=== PATIENT | female | born 1960 | race Caucasian/White ===

== ENCOUNTER 2017-09-21 11:40 | Inpatient (IN) | payer MEDICAID, OTHER ==
[~2017-09-21] VITALS: Ht 162.6 cm; Wt 64.0 kg
[~2017-09-21 11:40] MED LIST: APAP325T4 PO; BUPR150T3 PO; LEVO137T2 PO; MAPA325T2 PO; METF-699 PO; NICO7DIS2 TD; NICO7PA EXT; OMEP20CA3 PO; PRIL20CA9 PO; SERT50TA PO; SYNT137T7 PO; TRAZO50TA PO; XANA1TAB2 PO; ZOLO50TA PO
[2017-09-21] MEDS ORDERED: AUGM875T28 PO (11:56)
[2017-09-21] MEDS ORDERED: VITA200038 PO (11:56)
[2017-09-21] MEDS ORDERED: WELLTAB40 PO (11:56)
[2017-09-21] MEDS ORDERED: XANA1TAB2 PO (11:56)
[2017-09-21 12:43] LABS: MEAN CORPUSCULAR HEMOGLOBIN 29.1 pg (27.0-33.0); MEAN CORPUSCULAR HGB CONC 33.9 g/dl (32.0-36.5); MEAN CORPUSCULAR VOLUME 85.7 fl (80.0-96.0); PLATELET COUNT, AUTOMATED 273 10^3/uL (150-450); RED CELL DISTRIBUTION WIDTH 13.3 % (11.5-14.5); WHITE BLOOD COUNT 6.3 10^3/uL (4.0-10.0)
[2017-09-21 13:07] LABS: ALBUMIN 4.2 GM/DL (3.2-5.2); ALKALINE PHOSPHATASE 103 U/L (45-117); ALT/SGPT 28 U/L (12-78); ANION GAP 8 MEQ/L (8-16); AST/SGOT 10 U/L (7-37); BILIRUBIN,DIRECT < 0.1 MG/DL (0.0-0.2); BILIRUBIN,TOTAL 0.3 MG/DL (0.2-1.0); BLOOD UREA NITROGEN 16 MG/DL (7-18); CALCIUM LEVEL 9.9 MG/DL (8.5-10.1); CARBON DIOXIDE LEVEL 27 MEQ/L (21-32); CHLORIDE LEVEL 107 MEQ/L (98-107); CREATININE FOR GFR 0.76 MG/DL (0.55-1.02); GLOMERULAR FILTRATION RATE > 60.0 (>51); GLUCOSE, FASTING 108 MG/DL (70-105); POTASSIUM SERUM 4.1 MEQ/L (3.5-5.1); SODIUM LEVEL 142 MEQ/L (136-145); TOTAL PROTEIN 7.2 GM/DL (6.4-8.2)
[2017-09-21 13:08] LABS: METHADONE URINE NEGATIVE (NEGATIVE)
[2017-09-21 17:05] VITALS: BP 125/77
[2017-09-21] MEDS ORDERED: OLANZapine ORAL DISINTEGRATING TAB 5MG PO PRN (19:45)
[2017-09-21] MEDS ORDERED: ACETAMINOPHEN TAB 650MG DOSE (2X325MG) PO PRN (19:45)
[2017-09-21] MEDS ORDERED: MAALOX 30 ML SUSP *UDC PO PRN (19:45)
[2017-09-21] MEDS ORDERED: MOM 30ML SUSPENSION UDC PO PRN (19:45)
[2017-09-21] MEDS: AUGMENTIN 875 MG TAB PO SCH (21:22)
[2017-09-21] MEDS: ALPRAZolam 0.5 MG TAB PO SCH (21:26)
[2017-09-22 06:25] VITALS: BP 130/68
[2017-09-22] MEDS: LEVOTHYROXINE 137MCG TABLET (0.137MG) PO SCH (06:49)
[2017-09-22] MEDS: OMEPRAZOLE 20 MG CAP PO SCH (08:43)
[2017-09-22] MEDS: ALPRAZolam 0.5 MG TAB PO SCH (08:43)
[2017-09-22] MEDS: AUGMENTIN 875 MG TAB PO SCH ×2 (08:44→20:31)
[2017-09-22] MEDS: MULTIVITAMINS/MINERALS THERAP 1 TAB PO SCH (08:44)
[2017-09-22] MEDS ORDERED: SERTRALINE HCL 50 MG TAB PO SCH (09:00)
[2017-09-22] MEDS: chlordiazePOXIDE 25 MG CAP PO SCH ×2 (09:00→20:55)
[2017-09-22] MEDS ORDERED: buPROPion **XL** TABLET 150MG (WELLBUTRIN XL) PO SCH (09:00)
[2017-09-22] MEDS ORDERED: NICOTINE 14 MG/24 HR TRANSDERMAL TD SCH (09:00)
[2017-09-22] MEDS ORDERED: traZODone 50 MG TAB PO PRN (09:30)
--- NOTE | 2017-09-22 16:09 | MHHPE ---
DATE OF ADMISSION: 09/22/2017 LEGAL STATUS ON ADMISSION: 9.39 legal status. CHIEF COMPLAINT: "I have been feeling depressed." HISTORY OF PRESENT ILLNESS: 57-year-old female with history of depression and polysubstance abuse admitted to our unit on a 9.39 legal status. According to the record, patient was referred by her case supervisor, Lorna, and was picked up by [place] [employer] to be evaluated to our emergency department. According to Lorna she made a visit to the patient's home, and she was depressed, crying, and stated that she had thought about taking an overdose. Patient stated that she did not want to feel like this any longer. Said she had not left the apartment in a week and has hardly sat up. Also reported by Lorna she had several notes saying good bye. Per patient, this note was addressed to her dog and was not a suicide note. Patient admitted feeling depressed, anxious, said that she started taking her Zoloft again after stopping it for several months a week and a half ago. Patient does not have current outpatient appointments. Her primary care provider prescribed her medications. Apparently she is supposed to be taking Xanax, Zoloft and Wellbutrin. During the interview today, patient is minimizing all the events that lead to the admission and is trying to convince me that this has been taking out of context. She admits some depressive symptoms, but she is again minimizing, and at this point, she is not reliable. Patient reports that she has been depressed approximately one month, feels that she has been more quiet, isolated, more tired with less appetite, lower self esteem. Patient admits to feeling worried, anxious, have ruminations and it is difficult to make decisions. Again she denies suicidal thoughts but is not reliable. There is no evidence of psychotic symptoms. Review of the chart during her last admission approximately one year ago, her UDS was positive for cocaine, marijuana, and alcohol. When she got to the emergency department she was very agitated and had to be medicated and restrained. This time, patient is much better and is cooperative although minimizing. 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 PAST PSYCHIATRIC HISTORY: As above, patient has been diagnosed with depression, polysubstance abuse and was admitted to our unit about a year ago. FAMILY HISTORY: Patient reports her father was an alcoholic. SUBSTANCE ABUSE HISTORY: Patient denies having any problems with drugs or alcohol, however she was admitted last year with a positive urine drug screen of cocaine, marijuana and blood alcohol level. SOCIAL HISTORY: Patient says that she lives alone, has very poor support, has only "acquaintances". 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 Denies any abuse or neglect during childhood. PSYCHIATRIC REVIEW OF SYSTEMS: Bipolar/effie: No evidence of grandiosity flight of ideas or pressured speech. Anxiety disorder: Patient reports anxiety but denies panic, agoraphobia, obsessive Compulsive Disorder (OCD), washing hand repeatedly, checking things over and over. Somatization disorder: Screening from pain, conversion, GI or sexual symptoms are negative. Eating disorder: Screening for diet, use of laxities, eating in binges is negative. Cognitive disorder. Patient reports poor attention and concentration but is not consistent with cognitive disorder. Psychotic disorder: There is no evidence of delusions, paranoia, grandiosity or congregation preoccupation. No hallucinations or looseness of associations. PHYSICAL EXAMINATION: Is as per physician physical laboratory assistant. LABS AT ADMISSION: Her CBC was unremarkable except RBC of 547, CMP is unremarkable. TSH was 0.31. Urine drug screen was positive for benzodiazepine. Blood alcohol level is negative. MENTAL STATUS EXAMINATION: Patient is dressed in [facility]. Patient is cooperative but minimizing. Speech is somewhat pressured. Has fair eye contact. Mood is anxious and depressed. Affect is labile. Patient is oriented to time, place, person and situation. Maintains attention and concentration fairly. Instant recall, recent and remote memory are fair. Thought process are coherent and logical and goal-directed. Patient does not have auditory or visual hallucination. The patient does not have paranoid persecutory, somatic, grandiose or congregation delusion. The patient denies suicidal ideation, but again she left a suicide note and she is not reliable. No homicidal ideation. Judgment and insight are poor. DIAGNOSES: AXIS I: Unspecified depressive disorder. Rule out major depressive disorder verus substance induced mood disorder versus adjustment disorder with depressed mood. Rule out polysubstance use versus dependency. AXIS II: Deferred. AXIS III: History of Jose's thyroiditis and gastroesophageal reflux disease. INITIAL TREATMENT PLAN: Patient was admitted on a 9.39 legal status. Complete history was obtained. With her permission, family will be contacted and the database will be expanded. Her medication regimen will be [id number] and changed accordingly. She will be provided with protected environment. She will be treated with individual, group and milieu therapy. She will also receive supportive psychoeducation. Discharge planning will commence immediately. Length of stay will be between 5 and 7 days. Patient follow up will be strongly recommended. The treatment plan will focus initially on depression, risk for suicide, substance abuse.
[2017-09-22 18:09] VITALS: BP 135/72
[2017-09-22] MEDS: SERTRALINE HCL 50 MG TAB PO SCH (20:31)
[2017-09-23] MEDS: LEVOTHYROXINE 137MCG TABLET (0.137MG) PO SCH (06:08)
[2017-09-23 06:38] VITALS: BP 116/58
[2017-09-23] MEDS: OMEPRAZOLE 20 MG CAP PO SCH (08:16)
[2017-09-23] MEDS: chlordiazePOXIDE 25 MG CAP PO SCH (08:16)
[2017-09-23] MEDS: AUGMENTIN 875 MG TAB PO SCH ×2 (08:16→21:01)
[2017-09-23] MEDS: MULTIVITAMINS/MINERALS THERAP 1 TAB PO SCH (08:16)
[2017-09-23 20:21] VITALS: BP 147/81
[2017-09-23] MEDS: SERTRALINE HCL 50 MG TAB PO SCH (21:01)
[2017-09-24] MEDS: chlordiazePOXIDE 25 MG CAP PO SCH ×3 (00:04→21:23)
[2017-09-24] MEDS: LEVOTHYROXINE 137MCG TABLET (0.137MG) PO SCH (06:10)
[2017-09-24 06:39] VITALS: BP 121/79
[2017-09-24] MEDS: AUGMENTIN 875 MG TAB PO SCH ×2 (08:24→21:23)
[2017-09-24] MEDS: MULTIVITAMINS/MINERALS THERAP 1 TAB PO SCH (08:24)
[2017-09-24] MEDS: OMEPRAZOLE 20 MG CAP PO SCH (08:24)
--- NOTE | 2017-09-24 11:25 | IPN ---
DATE OF SERVICE: 09/23/2017 HISTORY: 57-year-old female with history of depression and polysubstance abuse admitted to our unit for suicidal ideation. The patient left a suicide note that was very concerning. MEDICATIONS: - Zoloft 50 mg by mouth at bedtime - trazodone 50 mg by mouth at bedtime as needed for insomnia - Librium 25 mg by mouth twice a day SUBJECTIVE: "I need to go home." OBJECTIVE: No major changes from yesterday. Patient continues minimizing the events that led to her admission. She is denying suicidal thoughts and is asking me to go home. Patient continues depressed with sad, restricted facial expression, psychomotor retardation. Patient has very little insight and is not reliable. There is no evidence of psychotic symptoms. Patient reports mild symptoms of tremors and tension from the discontinuation of Klonopin. She is taking now a tapering dose of Librium. MENTAL STATUS EXAMINATION: Patient dressed in [facility]. Patient is cooperative, has fair eye contact. Speech is low and monotone. Mood is depressed and anxious. Affect is restricted. No evidence of delusions or hallucinations. Memory, attention and concentration are fair. The patient denies suicidal ideation, but she is not reliable, is minimizing all the symptoms. Insight and judgment is poor. ASSESSMENT: 1. Depression. 2. Suicidal ideation. PLAN: 1. Continue sertraline 50 mg by mouth at bedtime. 2. Continue trazodone 50 mg by mouth at bedtime as needed for insomnia. 3. Increase Librium to 25 mg by mouth three times a day.
--- NOTE | 2017-09-24 12:55 | MHHPE ---
DATE OF ADMISSION: 09/21/2017 Please refer to psychiatric history and evaluation for further details on this admission. This examination and history is intended for medical issues which may need treatment, followup or consult on this 57-year-old female. ALLERGIES: No known allergies. SOCIAL HISTORY: She is single. She lives in [place]. She smokes one half pack of cigarettes per day. EtOH currently none. Recreational drug use none. PAST MEDICAL HISTORY: Anxiety. Hypothyroidism. Gastroesophageal reflux disease (GERD). PAST SURGICAL HISTORY: Tonsillectomy. LABORATORY STUDIES: WBC 6.3, hemoglobin 15.9, hematocrit 46.9, platelets 273. Electrolytes were normal. TSH was normal at 0.318. Toxicology screen urine was positive for benzodiazepines. HOME MEDICATIONS: - Xanax 1 mg by mouth twice daily - Augmentin 875 one by mouth twice daily for a recent upper respiratory infection. She states she has taken only 3 or 4 days of it and then she came in here. - Wellbutrin XL 300 mg by mouth daily - Vitamin D 50,000 units by mouth weekly - levothyroxine 0.137 mcg by mouth daily - omeprazole 20 mg by mouth daily - Sertraline 50 mg by mouth daily Ten systems review was done. Patient was feeling well. Had no complaints. EKG on file, sinus rhythm, nonspecific ST-T wave abnormalities. PHYSICAL EXAMINATION: 57-year-old cooperative female in no acute distress. Height 64 inches, weight 60.5 kg. BMI 29.2. Blood pressure 130/68, pulse 90, respirations 16, temperature 98.7. The patient is alert and oriented times three. Pupils equal and reactive to light. Extraocular movements intact. Cornea and sclera clear. Conjunctiva normal. No facial asymmetry. Pharynx slightly reddened. Tongue and gums pink and moist. Tongue is midline. Neck is supple, without lymphadenopathy. No thyromegaly. No goiter. Has coarse breath sounds. Few scattered rhonchi. No wheeze or retraction. Heart is regular. Abdomen benign. Bowel sounds positive. Genitourinary ()/Rectal: Not done. Extremities show equal strength, full range of motion. No cyanosis, clubbing or edema. Peripheral pulses equal and palpable bilaterally. Skin is warm and dry. IMPRESSION AND PLAN: 1. Psychiatric plan per psychiatry. 2. Upper respiratory infection (URI). Continue Augmentin 875 one by mouth twice daily. Take with food times 7 days. She has had approximately 3 days already before admission. 3. Gastroesophageal reflux disease (GERD) stable. 4. Hypothyroidism. TSH therapeutic on current dose of levothyroxine. 5. Continue omeprazole for GERD. 6. No other acute medical issues.
[2017-09-24 18:00] VITALS: BP 140/85
[2017-09-24] MEDS: SERTRALINE HCL 50 MG TAB PO SCH (21:23)
--- NOTE | 2017-09-25 02:58 | MHIPN ---
DATE OF SERVICE: 09/24/2017 HISTORY: 57-year-old female with history of depression and polysubstance abuse admitted to our unit for suicidal ideation. The patient left a suicide note that was brought by her health and social care teacher. MEDICATIONS: - Zoloft 50 mg by mouth nightly - trazodone 50 mg by mouth nightly as needed for insomnia - Librium 25 mg by mouth three times a day SUBJECTIVE: "I need to be discharged." OBJECTIVE: Patient continues labile, although she is interacting better with other patients and staff. Psychomotor retardation has improved. Patient continues crying during part of the interview. She is asking to be discharged. Denies symptoms of withdrawal and slept better last night. MENTAL STATUS EXAMINATION: Patient dressed in [facility]. Patient is cooperative, has fair eye contact. Speech is normal in rate, volume and articulation, is coherent and is spontaneous. Mood is depressed and anxious, but somewhat improved. Affect is labile. No evidence of delusions or hallucinations. Attention and concentration are fair. Patient is denying suicidal ideation during the interview, but at this point is considered non-reliable since she is minimizing all the symptoms in order to be discharged. Insight and judgment is limited. ASSESSMENT: 1. Depression. 2. Suicidal ideation. PLAN: 1. Continue sertraline 50 mg by mouth nightly. 2. Continue trazodone 50 as needed for insomnia. 3. Decrease Librium to 25 mg by mouth twice a day.
[2017-09-25] MEDS: LEVOTHYROXINE 137MCG TABLET (0.137MG) PO SCH (06:02)
[2017-09-25 06:27] VITALS: BP 110/63
[2017-09-25] MEDS: MULTIVITAMINS/MINERALS THERAP 1 TAB PO SCH (08:07)
[2017-09-25] MEDS: OMEPRAZOLE 20 MG CAP PO SCH (08:07)
[2017-09-25] MEDS: chlordiazePOXIDE 25 MG CAP PO SCH ×2 (08:07→21:21)
[2017-09-25] MEDS: AUGMENTIN 875 MG TAB PO SCH ×2 (08:08→21:21)
[2017-09-25] MEDS ORDERED: VITAMIN D 50,000 UNITS CAPSULE (ERGOCALCIFEROL 1.25MG) PO SCH (09:00)
--- NOTE | 2017-09-25 17:39 | MHIPN ---
DATE: 09/25/2017 HISTORY: 57-year-old female with history of depression and polysubstance abuse, admitted to our unit for suicidal ideation. Patient left a suicidal note that was brought by her foster care social worker. MEDICATIONS: - Zoloft 50 mg by mouth nightly - trazodone 50 mg by mouth nightly as needed for insomnia - Librium 25 mg by mouth three times a day SUBJECTIVE: "I'm feeling much better." OBJECTIVE: Patient is improving slowly. Patient is interacting better with other patients and staff. No psychomotor retardation. Patient is denying side effects from the medication. Patient is denying auditory or visual hallucinations or delusions. MENTAL STATUS EXAMINATION: Patient is dressed in [facility]. Patient is cooperative, has fair eye contact. Her speech is normal in rate, volume, and articulation. Patient is depressed, but is improving. Affect is congruent with mood. No evidence of delusions or hallucinations. Memory, attention, and concentration are fair. Patient is able to contract for safety during the interview. Insight and judgment is improving. ASSESSMENT: 1. Depression. 2. Suicidal ideation. 3. Polysubstance dependency by history. PLAN: 1. Continue sertraline 50 mg by mouth nightly. 2. Continue trazodone 50 mg by mouth nightly. 3. Continue Librium 25 mg twice a day.
[2017-09-25 18:00] VITALS: BP 110/66
[2017-09-25] MEDS: SERTRALINE HCL 50 MG TAB PO SCH (21:21)
[2017-09-26] MEDS: LEVOTHYROXINE 137MCG TABLET (0.137MG) PO SCH (05:36)
[2017-09-26 06:34] VITALS: BP 96/61
[2017-09-26] MEDS: chlordiazePOXIDE 25 MG CAP PO SCH (08:12)
[2017-09-26] MEDS: OMEPRAZOLE 20 MG CAP PO SCH (08:12)
[2017-09-26] MEDS: MULTIVITAMINS/MINERALS THERAP 1 TAB PO SCH (08:12)
[2017-09-26] MEDS: AUGMENTIN 875 MG TAB PO SCH ×2 (08:12→20:13)
[2017-09-26 18:00] VITALS: BP 121/61
[2017-09-26] MEDS: SERTRALINE HCL 50 MG TAB PO SCH (20:13)
[2017-09-26] MEDS ORDERED: chlordiazePOXIDE 25 MG CAP PO SCH (21:00)
[2017-09-27] MEDS: LEVOTHYROXINE 137MCG TABLET (0.137MG) PO SCH (06:14)
[2017-09-27 06:49] VITALS: BP 112/59
[2017-09-27] MEDS: MULTIVITAMINS/MINERALS THERAP 1 TAB PO SCH (08:22)
[2017-09-27] MEDS: OMEPRAZOLE 20 MG CAP PO SCH (08:22)
[2017-09-27] MEDS: AUGMENTIN 875 MG TAB PO SCH (08:22)
[2017-09-27] MEDS ORDERED: CHLO25CA PO (09:19)
--- NOTE | 2017-09-27 15:11 | MHDS ---
DATE OF ADMISSION: 09/21/2017 DATE OF DISCHARGE: 09/27/2017 LEGAL STATUS AT ADMISSION: 9.39 legal status. HISTORY OF PRESENT ILLNESS: A 57-year-old female with history of depression and polysubstance abuse admitted to our unit on a 9.39 legal status. According to the record, the patient was referred by her postal support employee, Lorna. She was picked up by [place] [employer] to be evaluated at the emergency department (ED). According to Lorna, she made a visit to the patient's home and she was depressed, crying, stating that she was thinking about taking an overdose. The patient stated that she did not want to feel like this any longer. She had not left the apartment in a week and has hardly sat up. She also reported that she left several notes saying goodbye. Per patient, this note was addressed to her dog and was not a suicide note. The patient admitted feeling depressed, anxious. She reports that she restarted taking her Zoloft again after stopping it for several months. She does not have current outpatient appointments. Her primary care provider is prescribing the medications. Apparently, she is taking Xanax, Zoloft, and Wellbutrin. During the interview in our unit, the patient was minimizing all the events that led to her admission and was trying to convince me that all has been taken out of context. She admitted feeling depressed but descriptions of the symptoms were not reliable and definitely minimizing them. She admitted that she was feeling depressed for a month, that she has been more quiet and isolated, more tired, having less appetite, lower self-esteem. The patient also admitted feeling worried, anxious, and having ruminations, also that it was very difficult to make decisions. Again, she denied suicidal thoughts and was not reliable. There is no evidence of psychotic symptoms. No auditory or visual hallucinations or delusions. Reviewing the chart, during her last admission, approximately one year ago, her urine drug screen was positive for cocaine, marijuana and alcohol. She was very agitated when arrived to the emergency department at that time. She had to be medicated and restrained. This time, the patient's presentation is significantly better and more cooperative. LABORATORY DATA AT ADMISSION: Her CBC was unremarkable. CMP within normal limits except TSH of 0.31. Urine drug screen was positive for benzodiazepines, rest negative. Blood alcohol level was negative. HOSPITAL COURSE: After the first evaluation, given the fact that the patient was taking Xanax, she was placed on Librium 25 mg by mouth three times a day tapering dose. She was also restarted on Zoloft 50 mg by mouth at bedtime. With this medication, the patient was stabilized. Her mood improved slowly but steadily. After a couple of days in our unit, she was more insightful. Her mood was better and she was interacting with other patients and staff. The patient was participating in all psychotherapeutic activities. On 09/27/2017, the patient is in stable condition. Her mood is euthymic. Denies suicidal or homicidal ideation. Again, there is no evidence of psychotic symptoms. No auditory or visual hallucinations or delusions. The patient wanted to be discharged and continue her treatment as outpatient. She was motivated to do so and also start psychotherapy. Therefore, she is discharged on 09/27/2017 in a stable condition. MENTAL STATUS EXAMINATION AT DISCHARGE: The patient is dressed in [facility]. The patient is calm and cooperative. Speech is clear, coherent with normal rate and is spontaneous. The patient has good eye contact. Mood is euthymic. Affect is appropriate and congruent with mood. The patient is oriented to time, place, person and situation. Maintains attention and concentration correctly. Instant recall, recent and remote memory are intact. Thought processes are coherent, logical and goal-directed. The patient does not have auditory or visual hallucinations. The patient does not have paranoid, persecutory, somatic, grandiose, or moravian delusions. The patient is denying suicidal or homicidal ideation. Insight and judgment are fair. DISCHARGE DIAGNOSES: AXIS I: Major depressive disorder. Polysubstance dependency by history. AXIS II: Deferred. AXIS III: History of Jose's thyroiditis and gastroesophageal reflux disease (GERD). MEDICATIONS AT DISCHARGE: - Zoloft 50 mg by mouth at bedtime - Librium 25 mg by mouth at bedtime to be taken for four days and then discontinued CONDITION AT DISCHARGE: Stable. No auditory or visual hallucinations. No delusions. No suicidal or homicidal ideation. INSTRUCTIONS TO THE PATIENT: The patient is to continue taking her medications as prescribed and followup appointments. She is advised to maintain absolute sobriety from drugs and alcohol. The patient has scheduled appointment for medication management, individual psychotherapy, and primary care physician.
== END 2017-09-27 15:55 | disposition home or self-care (01) | DRG 754 ==
LOC: M ED 11:40 → M ED INP 14:36 → M PSY 16:10
PROVIDERS: ADMIT Psychiatry & Neurology Psychiatry; ATTEND Psychiatry & Neurology Psychiatry
DX: F32.9 Major depressive disorder, single episode, unspecified (principal); F19.20 Other psychoactive substance dependence, uncomplicated; F17.210 Nicotine dependence, cigarettes, uncomplicated; E03.9 Hypothyroidism, unspecified; J06.9 Acute upper respiratory infection, unspecified; K21.9 Gastro-esophageal reflux disease without esophagitis; Z79.899 Other long term (current) drug therapy

== ENCOUNTER → 2018-03-06 | Outpatient (CLI) | payer MEDICAID | LOC: M WUC 16:56 | DX: M25.78 Osteophyte, vertebrae (principal) | CPT/HCPCS: 72052 ==

== ENCOUNTER → 2018-12-15 | Outpatient (REF) | payer MEDICAID ==
[~2018-12-15] MED LIST changes: +AUGM875T28 PO; +CHLO25CA PO; +VITA200038 PO; +WELLTAB40 PO
[2018-12-15 14:43] LABS: COLLAGEN EPINEPHRINE 120 SECONDS (74-162); PROTHROMBIN TIME 13.3 SECONDS (12.1-14.4)
[2018-12-15 14:44] LABS: PARTIAL THROMBOPLASTIN TIME 32.8 SECONDS (25.4-37.6)
== END ==
LOC: M LABDRAW1 13:53
PROVIDERS: ATTEND Physical Medicine & Rehabilitation
DX: M47.812 Spondylosis without myelopathy or radiculopathy, cervical region (principal); M50.221 Other cervical disc displacement at C4-C5 level; Z01.818 Encounter for other preprocedural examination

== ENCOUNTER → 2019-03-15 | Outpatient (REF) ==
[~2019-03-15] MED LIST changes: +SERT-141 PO; -SERT50TA PO
--- NOTE | 2019-03-16 01:24 | REP ---
Clinical: Cervical neck pain. Technique: AP, lateral, open mouth views of the cervical spine. Findings: Advanced multilevel degenerative changes include osteophytosis, endplate sclerosis/irregularity, disc space narrowing, and facet arthropathy. Alignment and lordosis relatively maintained. Acute / chronic compression injury cannot be excluded. Impression: Advanced multilevel degenerative spondylosis. Electronically Signed by Ashish Aguilar MD 03/16/2019 01:16 A
== END ==
LOC: M SMT 10:15
PROVIDERS: ATTEND Internal Medicine
DX: Z02.71 Encounter for disability determination (principal)

== ENCOUNTER → 2020-01-10 | Outpatient (REF) | payer MEDICAID ==
[~2020-01-10] MED LIST changes: +OMEP1CAP73 PO; -OMEP20CA3 PO; +TRAZ1TAB10 PO; -TRAZO50TA PO
[2020-01-10 14:33] LABS: C REACTIVE PROTEIN QUANTITATIV 6.16 MG/DL (0.00-0.30); RHEUMATOID FACTOR QUANT < 10.0 IU/ML (<15.0)
== END ==
LOC: M LAB REF 13:38
PROVIDERS: ATTEND Internal Medicine Pulmonary Disease
DX: R91.8 Other nonspecific abnormal finding of lung field (principal)

== ENCOUNTER → 2020-01-30 | Outpatient (CLI) | payer OTHER ==
--- NOTE | 2020-01-30 09:59 | REP ---
CT CHEST WITHOUT IV CONTRAST: CT chest performed without IV contrast using high resolution protocol, slice thickness is 1 mm in the axial plane. Sagittal and coronal reconstruction images are performed. Imaging is performed in the supine and prone positions. Both lungs demonstrate minor scattered diffuse thickening of interlobular septae. No consolidation is seen. No nodule is seen. There is no pleural thickening or pleural effusion. There is no pericardial effusion. There is very mild bronchiectasis at both lower lobes. No axillary or mediastinal adenopathy is seen. There is mild atherosclerotic calcification of the thoracic aorta without aneurysm. The heart is normal in size. In the visualized portions of the upper abdomen, there is diffuse fatty infiltration of the liver. There is a left adrenal adenoma, 2.6 cm in maximum diameter. There are degenerative changes of the spine. IMPRESSION: High resolution chest CT shows minor diffuse thickening of interlobular septae bilaterally. No other significant parenchymal abnormality is seen. There is mild bilateral lower lobe bronchiectasis. Diffuse fatty infiltration of the liver. Left adrenal adenoma. Electronically Signed by Akash [place] MD 01/30/2020 10:32 A
== END ==
LOC: M RAD 08:50
PROVIDERS: ATTEND Internal Medicine Pulmonary Disease
DX: K76.0 Fatty (change of) liver, not elsewhere classified (principal); E27.9 Disorder of adrenal gland, unspecified; J47.9 Bronchiectasis, uncomplicated

== ENCOUNTER → 2020-11-04 | Outpatient (REF) | payer OTHER ==
[~2020-11-04] MED LIST changes: -BUPR150T3 PO; +BUPR150T4 PO; -MAPA325T2 PO; +MAPA325T8 PO; -METF-699 PO; +METF-817 PO
== END ==
LOC: M LAB REF 16:14
PROVIDERS: ATTEND Physician Assistant
DX: R21 Rash and other nonspecific skin eruption (principal); L57.0 Actinic keratosis; D23.71 Other benign neoplasm of skin of right lower limb, including hip

== ENCOUNTER → 2020-12-23 | Outpatient (CLI) | payer OTHER ==
[2020-12-23 11:41] LABS: HEMOGLOBIN A1c 5.9 %
[2020-12-23 11:54] LABS: ALBUMIN 4.4 GM/DL (3.2-5.2); ALT/SGPT 60 U/L (12-78); BILIRUBIN,TOTAL 0.2 MG/DL (0.2-1.0); BLOOD UREA NITROGEN 14 MG/DL (7-18); CALCIUM LEVEL 9.5 MG/DL (8.8-10.2); CARBON DIOXIDE LEVEL 28 MEQ/L (21-32); CHLORIDE LEVEL 104 MEQ/L (98-107); CHOLESTEROL LEVEL 304 MG/DL (<200); GLOMERULAR FILTRATION RATE > 60.0 (>45); GLUCOSE, FASTING 78 MG/DL (70-100); HDL CHOLESTEROL 38 MG/DL (>40); LDL CHOLESTEROL 212 MG/DL (<100); NON-HDL-C 266 MG/DL; POTASSIUM SERUM 4.4 MEQ/L (3.5-5.1); SODIUM LEVEL 139 MEQ/L (136-145); THYROID STIMULATING HORMONE 0.333 uIU/ML (0.358-3.740); TOTAL PROTEIN 7.3 GM/DL (6.4-8.2); TRIGLYCERIDES LEVEL 272 MG/DL (<150)
== END ==
LOC: M LAB 09:56
PROVIDERS: ATTEND Nurse Practitioner Family
DX: E13.9 Other specified diabetes mellitus without complications (principal); Z09 Encounter for follow-up examination after completed treatment for conditions other than malignant neoplasm

== ENCOUNTER → 2021-02-05 | Outpatient (CLI) | payer OTHER ==
[~2021-02-05] MED LIST changes: +BUPR150T12 PO; -BUPR150T4 PO
--- NOTE | 2021-02-06 11:30 | REP ---
INDICATION: PERSONAL HX NICOTINE DEPENDENCE COMPARISON: 01/30/2020 TECHNIQUE: Axial noncontrast images from the thoracic inlet to the upper abdomen using low-dose lung screening technique (LDCT). FINDINGS: Bilateral lung [place] are well aerated and clear. No consolidation, suspicious nodule or mass lesion. No pleural effusion. No pneumothorax. Tracheobronchial tree is patent. IMPRESSION: Lung-RADS category 1. No suspicious nodule or mass. Management recommendations include annual low-dose CT surveillance. <Electronically signed by Ashish Aguilar > 02/06/21 [id number]
== END ==
LOC: M RAD 11:55
PROVIDERS: ATTEND Internal Medicine Pulmonary Disease
DX: Z87.891 Personal history of nicotine dependence (principal)

== ENCOUNTER → 2021-08-18 | Outpatient (REF) | payer OTHER ==
[2021-08-18 12:46] LABS: C REACTIVE PROTEIN QUANTITATIV 0.77 MG/DL (0.00-0.30); CPK CREATINE PHOSPHOKINASE 436 U/L (26-192); IRON (FE) 63 UG/DL (50-170); MAGNESIUM LEVEL 2.2 MG/DL (1.8-2.4); PHOSPHORUS LEVEL 3.4 MG/DL (2.5-4.9); RHEUMATOID FACTOR QUANT < 10.0 IU/ML (<15.0); TOTAL 25(OH) VITAMIN D 17.4 NG/ML (30.0-100.0); VITAMIN B12 LEVEL 668 PG/ML (247-911)
[2021-08-20 00:11] LABS: ANA (HEP2) Positive (.); CYCLIC CITRULLINATED PEPTIDE 10 units (0-19)
== END ==
LOC: M SFHCRHEU 10:11
PROVIDERS: ATTEND Internal Medicine
DX: M25.40 Effusion, unspecified joint (principal); M79.10 Myalgia, unspecified site

== ENCOUNTER → 2021-09-02 | Outpatient (REF) | payer OTHER ==
[2021-09-02 17:33] LABS: BASO % 0.3 % (0.0-1.0); EOS # 0.3 10^3/uL (0.0-0.5); EOS % 3.3 % (0.0-3.0); HEMATOCRIT 44.9 % (36.0-47.0); HEMOGLOBIN 14.4 g/dl (12.0-15.5); LYMPH # 3.2 10^3/uL (1.5-5.0); LYMPH % 37.3 % (24.0-44.0); MEAN CORPUSCULAR HEMOGLOBIN 29.4 pg (27.0-33.0); MEAN CORPUSCULAR HGB CONC 32.1 g/dl (32.0-36.5); MEAN CORPUSCULAR VOLUME 91.8 fl (80.0-96.0); MONO # 0.6 10^3/uL (0.0-0.8); MONO % 6.8 % (2.0-8.0); NEUTROPHILS # 4.5 10^3/uL (1.5-8.5); NEUTROPHILS % 51.8 % (36.0-66.0); PLATELET COUNT, AUTOMATED 337 10^3/uL (150-450); RED BLOOD COUNT 4.89 10^6/uL (4.00-5.40); WHITE BLOOD COUNT 8.7 10^3/uL (4.0-10.0)
[2021-09-02 17:39] LABS: APPEARANCE, URINE HAZY (CLEAR); BACTERIA, URINE AUTO 1+ (NEGATIVE); BILIRUBIN, URINE AUTO NEGATIVE (NEGATIVE); BLOOD, URINE BLOOD NEGATIVE (NEGATIVE); COLOR, URINE YELLOW (YELLOW); GLUCOSE, URINE (UA) AUTO NEGATIVE (NEGATIVE); KETONE, URINE AUTO NEGATIVE (NEGATIVE); LEUKOCYTE ESTERASE, URINE AUTO 2+ (NEGATIVE); NITRITE, URINE AUTO NEGATIVE (NEGATIVE); PROTEIN, URINE AUTO NEGATIVE (NEGATIVE); RBC, URINE AUTO 0 /HPF (0-3); SPECIFIC GRAVITY URINE AUTO 1.014 (1.002-1.035); SQUAMOUS EPITHELIAL CELL UR AU 4 /HPF (0-6); UROBILINOGEN, URINE AUTO 0.2 mg/dL (0.0-2.0); WBC, URINE AUTO 6 /HPF (0-3)
[2021-09-02 18:04] LABS: COMPLEMENT C3 131 MG/DL (90-180); COMPLEMENT C4 28 MG/DL (10-40); CREATININE,RANDOM URINE 86.8 MG/DL; TOTAL PROTEIN,RANDOM URINE 7.6 MG/DL (0.0-12.0)
== END ==
LOC: M SFHCRHEU 10:40
PROVIDERS: ATTEND Internal Medicine
DX: R76.8 Other specified abnormal immunological findings in serum (principal)

== ENCOUNTER → 2022-04-02 | Outpatient (CLI) | payer OTHER | LOC: M RAD 10:07 | PROVIDERS: ATTEND Internal Medicine Pulmonary Disease | DX: Z87.891 Personal history of nicotine dependence (principal) ==

== ENCOUNTER → 2022-07-14 | Outpatient (REF) | payer OTHER ==
[2022-07-14 18:15] LABS: C REACTIVE PROTEIN QUANTITATIV 0.59 MG/DL (0.00-0.30)
[2022-07-14 18:51] LABS: CREATININE,RANDOM URINE 81.9 MG/DL; TOTAL PROTEIN,RANDOM URINE 10.3 MG/DL (0.0-12.0)
[2022-07-14 19:04] LABS: APPEARANCE, URINE MANUAL CLEAR (CLEAR); COLOR, URINE MANUAL YELLOW (YELLOW)
[2022-07-14 19:06] LABS: BILIRUBIN, URINE MANUAL NEGATIVE (NEGATIVE); BLOOD URINE MANUAL NEGATIVE (NEGATIVE); GLUCOSE, URINE (UA) MANUAL NEGATIVE (NEGATIVE); KETONE, URINE MANUAL NEGATIVE (NEGATIVE); LEUKOCYTE ESTERASE, URINE MAN POSITIVE (NEGATIVE); NITRITE, URINE MANUAL NEGATIVE (NEGATIVE); PROTEIN, URINE MANUAL NEGATIVE (NEGATIVE); UROBILINOGEN, URINE MANUAL NORMAL (NORMAL)
[2022-07-14 19:28] LABS: TOTAL 25(OH) VITAMIN D 25.6 NG/ML (30.0-100.0)
[2022-07-14 19:55] LABS: RBC, URINE NONE SEEN /hpf (0-3); SQUAMOUS EPITHELIAL CELL URINE MOD AMOUNT /hpf (SMALL AMT)
[2022-07-14 19:57] LABS: BACTERIA, URINE SMALL AMOUNT; HYALINE CAST, URINE NONE SEEN /lpf (0-1)
[2022-07-16 12:22] LABS: DRVV SCREEN 31.7 SEC
[2022-07-16 13:06] LABS: PTT LUPUS TYPE ANTICOAG SCREEN 0.8 (0-1.2)
== END ==
LOC: M SFHCRHEU 12:14
PROVIDERS: ATTEND Internal Medicine
DX: E55.9 Vitamin D deficiency, unspecified (principal); R74.8 Abnormal levels of other serum enzymes; R76.8 Other specified abnormal immunological findings in serum; M35.9 Systemic involvement of connective tissue, unspecified